=== PATIENT | male | born 1955 | race Caucasian/White ===

== ENCOUNTER → 2016-08-07 | Outpatient (CLI) | payer MEDICAID | LOC: BRMIMAGING 13:18 | PROVIDERS: ATTEND Physician Assistant | DX: S22.050A Wedge compression fracture of T5-T6 vertebra, initial encounter for closed fracture (principal); S22.060A Wedge compression fracture of T7-T8 vertebra, initial encounter for closed fracture; K83.0 Cholangitis | CPT/HCPCS: 71020-PO; 72070-PO; 76705-PO ==